=== PATIENT | female | born 1950 | race Caucasian/White ===

== ENCOUNTER 2017-04-10 16:09 | Emergency (ER) | payer OTHER ==
[2017-04-10] MEDS ORDERED: MORPHINE 2 MG/ML 1ML SYRINGE IV PRN (16:45)
[2017-04-10] MEDS ORDERED: ADACEL/BOOSTRIX VACCINE (DIPHTH/PERTUSS/ACELL/TETANUS)0.5ML SYR (90715) IM ONE (16:45)
[2017-04-10 16:53] LABS: BASO % 0.7 % (0.0-1.0); EOS # 0.1 K/mm3 (0.0-0.50); LARGE UNSTAINED CELL # 0.2 K/mm3 (0.0-0.4); LARGE UNSTAINED CELL % 1.9 % (0.0-4.0); LYMPH # 2.2 K/mm3 (1.5-4.5); MEAN CORPUSCULAR HEMOGLOBIN 28.9 pg (27.0-33.0); MEAN CORPUSCULAR VOLUME 87.8 fl (80.0-96.0); MONO # 0.5 K/mm3 (0.0-0.8); MONO % 6.1 % (0.0-5.0); NEUTROPHILS # 5.2 K/mm3 (1.8-7.7); NEUTROPHILS % 64.3 % (36.0-66.0); PLATELET COUNT, AUTOMATED 311 k/mm3 (150-450); RED CELL DISTRIBUTION WIDTH 12.9 % (11.5-14.5)
[2017-04-10 17:00] LABS: INR 0.85
--- NOTE | 2017-04-10 17:00 | REPUSA ---
CT of the head Clinical history: Headache. Trauma. Technique: Multiple axial CT images were obtained through the head without administration of contrast . Findings: The ventricles and sulci are symmetric bilaterally. There is no evidence of acute hemorrhag e or infarct. There is no midline shift, mass effect, or extra-axial fluid collection. The osseous st ructures are unremarkable. The visualized paranasal sinuses and mastoid air cells are clear. Impression: Negative study.
[2017-04-10 17:26] LABS: ALBUMIN/GLOBULIN RATIO 1.21 (1.00-1.93); ALKALINE PHOSPHATASE 78 U/L (45-117); ALT/SGPT 19 U/L (12-78); AMYLASE 47 U/L (25-115); ANION GAP 9 MEQ/L (8-16); AST/SGOT 15 U/L (15-37); BILIRUBIN,DIRECT < 0.1 MG/DL (0.0-0.2); BILIRUBIN,TOTAL 0.2 MG/DL (0.2-1.0); BLOOD UREA NITROGEN 11 MG/DL (7-18); CALCIUM LEVEL 8.8 MG/DL (8.8-10.2); CARBON DIOXIDE LEVEL 28 MEQ/L (21-32); CHLORIDE LEVEL 107 MEQ/L (98-107); CREATININE FOR GFR 0.77 MG/DL (0.55-1.02); GLOMERULAR FILTRATION RATE > 60.0 (>45); GLUCOSE, FASTING 104 MG/DL (80-110); POTASSIUM SERUM 4.1 MEQ/L (3.5-5.1); SODIUM LEVEL 144 MEQ/L (136-145); TOTAL PROTEIN 7.3 GM/DL (6.4-8.2)
[2017-04-10 17:56] VITALS: BP 179/81
--- NOTE | 2017-04-10 19:36 | ECGEPIP ---
Stationary ECG Study [facility] - ED Test Date: 2017-04-10 Pat Name: ALIZA DICKENS Department: Room: - Gender: F Wheel Roller: ELIAN : 1950 Requested By: MARLENE MATHIS Order Number: [id number] Reading MD: Lonnie Reynolds Measurements Intervals [place] Rate: 63 P: 61 GA: 167 QRS: 30 QRSD: 93 T: 31 QT: 421 QTc: 431 Interpretive Statements SINUS RHYTHM LAE NSTTW ABNORMALITIES NO PRIORS Electronically Signed On 04-10-2017 19:35:39 EDT by Lonnie Reynolds
--- NOTE | 2017-04-11 02:38 | REP ---
Clinical: Trauma. Findings: Mediastinum and cardiac silhouette are within normal limits. Lung morrison demonstrate chronic-appearing changes. Trace basilar atelectasis cannot be excluded. No focal consolidation/contusion, obvious effusion or pneumothorax. Double structures demonstrate age-related changes without obvious acute fracture/injury. Impression: Chronic-appearing changes. No prior exams for comparison. If the patient remains symptomatic consider chest CT for further investigation. Signed by Dinesh Chang MD 04/11/2017 02:29 A
== END 2017-04-10 18:19 | disposition home or self-care (01) ==
LOC: M ED 16:09 → EDBD 16:09 → M ED 18:19
DX: S00.93XA Contusion of unspecified part of head, initial encounter (principal); S91.321A Laceration with foreign body, right foot, initial encounter; S61.421A Laceration with foreign body of right hand, initial encounter; S41.012A Laceration without foreign body of left shoulder, initial encounter; V43.62XA Car passenger injured in collision with other type car in traffic accident, initial encounter; Y92.410 Unspecified street and highway as the place of occurrence of the external cause; Y93.9 Activity, unspecified; Y99.9 Unspecified external cause status; E03.9 Hypothyroidism, unspecified; Z87.891 Personal history of nicotine dependence
CPT/HCPCS: 12001; 70450; 71010; 80048; 80076; 81001; 82150; 82550; 82553; 83690; 85025; 85610; 85730; 86850; 86900; 86901; 90471; 90715; 93005; 93041; 94760; 96374; 99285; G0480